=== PATIENT | female | born 1955 | race African-American/Black ===

== ENCOUNTER → 2023-11-01 14:10 | Outpatient (CLI) | payer MEDICARE, SELFPAY ==
--- NOTE | ~2023-11-01 | DEXA_ITS ---
Bone Density Report Name: HARLEY GUERRA Age: 68 Sex: Female Ethnicity: White Date of : 1955 Indication: postmenopausal; screening for osteoporosis; Referring Provider: Yun Iglesias Study: Bone densitometry was performed. Exam Date: November 01, 2023 Accession number: [id number] Bone Density: Region BMD T-score Z-score Classification AP Spine (L1-L4) 1.353 2.8 4.8 Normal Femoral Neck (Left) 0.774 -0.7 1.1 Normal Total Hip (Left) 0.913 -0.2 1.2 Normal Femoral Neck (Right) 0.778 -0.6 1.1 Normal Total Hip (Right) 0.901 -0.3 1.1 Normal Total Hip Mean 0.907 -0.3 1.2 Normal World Health Organization criteria for BMD impression classify patients as: Normal (T-score at or above -1.0), Osteopenia (T-score between -1.0 and -2.5), or Osteoporosis (T-score at or below -2.5). 10-year Fracture Risk: FRAX not reported because: All T-scores for Spine Total, Hip Total, Femoral Neck at or above -1.0 Clinical Information Provided by Patient: Has used the following medications: Vitamin D, Calcium Patient maximum height was 63.8 Menopause Age: 62 Does not regularly consume dairy products Drinks caffeinated beverages Onset of menses at age 14 Number of children 5 Impression: The patient has normal bone mass. Discussion: BONE DENSITY IS ABOVE THE MINIMUM DESIRABLE LEVEL AT ALL SKELETAL SITES TESTED. This patient?s bone mineral density is above the minimum desirable level (T-score -1.0 or better) at all sites measured. The patient should follow a healthful lifestyle (good nutrition with adequate calcium and vitamin D, and appropriate weight-bearing exercise). Follow-Up: Consider repeating this study in 5 years or sooner if there is some new clinical indication. Reported by: AGUSTO on 11/01/2023 2:33:00 PM. Reviewed, dictated and finalized at location [facility]
== END ==
PROVIDERS: PCP Family Medicine
DX: Z78.0 Asymptomatic menopausal state (principal)
CPT/HCPCS: 77080